=== PATIENT | female | born 1945 | race Caucasian/White ===

== ENCOUNTER 2021-01-05 10:49 | Inpatient (IN) | payer MEDICARE, MEDICAID, SELFPAY ==
[2021-01-05] VITALS (46 sets, daily range): BP systolic 87–124; BP diastolic 49–76; PULSE 60–86; RESP 1–27; TEMP 36.7–36.8; O2SAT 84–97; BMI 29.8
--- NOTE | 2021-01-05 10:58 | XRR_ITS ---
PROCEDURE INFORMATION: Exam: XR Chest Exam date and time: 01/05/2021 10:58 AM Age: 75 years old Clinical indication: Cough and dyspnea; Additional info: Dyspnea/cough TECHNIQUE: Imaging protocol: XR of the chest. Views: 1 view. COMPARISON: No relevant prior studies available. FINDINGS: Lungs: Lungs are clear bilaterally. Pleural spaces: No pleural effusion. No pneumothorax. Heart/Mediastinum: Cardiac silhouette is markedly enlarged. Mediastinal contours are unremarkable. Vasculature: Vascular calcifications in the aorta. Bones/joints: Unremarkable for age. XR/XR chest 1V portable [id number] IMPRESSION: 1. No acute cardiopulmonary process. 2. Incidental/nonacute findings are listed in the report.
--- NOTE | 2021-01-05 10:59 | ECG_ITS ---
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 Measurements Intervals [place] Rate: 62 P: 40 MD: 185 QRS: 3 QRSD: 109 T: -61 QT: 438 QTc: 445 Interpretive Statements SINUS RHYTHM ST DEVIATION AND MODERATE T-WAVE ABNORMALITY, CONSIDER LATERAL ISCHEMIA [-0.1+ mV T WAVE IN I/aVL/V5/V6] ST DEVIATION AND MODERATE T-WAVE ABNORMALITY, CONSIDER INFERIOR ISCHEMIA [-0.1+ mV T WAVE IN II/aVF] No previous ECG available for comparison Electronically Signed On 01-06-2021 9:42:56 CDT by Fritz Troncoso M.D. [id number] f
--- NOTE | 2021-01-05 10:59 | XACV_ITS ---
Ht: 163 cm Wt: 79 kg BSA: 1.91 m2 Gender: Female : 1945 Any Known Allergies: Other Exam Priority: Routine Procedure(s): Procedure Description: Diagnostic procedure Procedure Description: PCI procedure Procedure Description: Left Heart Catheterization Procedure Description: Drug Eluting Coronary Stent Procedure Description: PTCA Procedure Description: Miscellaneous Procedure Description: ACT Diagnostic Cath Status: Emergency Diagnostic Findings * Left Main has no disease. * Circumflex has no disease. * Mid Left Anterior Descending: obstructive 60% stenosis, MIKE: 3 flow. * Mid Right Coronary Artery: subtotal occlusion, MIKE: 3 flow. * Coronary angiography shows right dominance. Interventional Findings * Mid Right Coronary Artery: 98% stenosis treated with a AB TREK 2.50X12 RX BALLOON, and KIMBERLY Rodrigez TOMMIE 4.0X12 DAREK. 0% residual stenosis, MIKE: 3 flow. Conclusions 1. 1-Left main is normal without significant disease2-LAD has patent previously placed proximal stent, there is a mid 60% stenosis not appear to be significant3-LCx has no significant disease noted otherwise4-RCA is subtotally occluded with almost 98% stenosis, it is the culprit or vessel for acute coronary syndrome. 2. There is subtotal occlusion coronary artery disease with two vessel disease. 3. Mid Right Coronary Artery was treated with a Balloon, and Drug Eluting Stent. Recommendations * 1-Return to inpatient for close monitoring and routine cath care 2-Risk factor modification for secondary prevention 3-Statin and aspirin 81 mg life--long, if tolerated 4-Patient was pre-loaded with 600 mg of Plavix, continue Plavix 75mg p.o. daily for at least one year. We will assess at the end of one year again to continue if further or not 5-Continue optimal medical management 6-Follow up with Dr. Anglin in four weeks and your primary care in 10 days. Interventional RX Recommendation: PCI w/o planned CABG Diagnostic RX Recommendation: PCI w/o planned CABG Clinical Evaluation EBL: 5mL-10mL Procedural Details Procedure Consent Obtained. Admit Source: Emergency department. Pre-Procedure Time Out. Identified patient by full name and date of as verbalized by the patient/guarantor. Does the consent match the physician's order: Yes. Accurate & Complete Informed Consent: Yes. Inpatient/Outpatient History & Physical on Chart: N/A. If H&P is completed, is and addenduem needed: N/A; If yes, is the addendum complete: N/A. Visualize and Verify Site with Patient/Guarantor: N/A. Relevant Radiology Images available: N/A. Pre-op teaching completed and patient verbalized understanding. The risks, benefits, and alternatives of sedation and/or procedure were discussed by physician. The patient agrees to continue. Procedure started. Correct patient, site and procedure confirmed by cath team. PERRLA. 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 Lungs clear x 5 lobes. IV Site on Arrival: 20 gauge in the left anticubital. Oxygen started at 2liters/min via nasal canula. bilateral groins was prepped with chloroprep then draped in the usual sterile fashion. right radial was prepped with chloroprep then draped in the usual sterile fashion. Physician notified. Baseline sample Acquired. HR: 67 BPM. Physician arrived. Physician scrubbed in. Immediate Pre-Procedure Time Out. Correct Patient: Yes; Correct Procedure: Yes; Correct Site: Yes; Correct Patient Position: Yes; Correct Supplies: Yes; Dried Flammable Prep: yES; Blood Products Available: N/A;. Lidocaine 1% infiltrated to the right radial. Arterial access obtained. ACT drawn. Results 107 seconds. Therapeutic limits - pre-heparin administration 90-150 seconds and monitoring heparin during a vascular procedure >250 seconds. A 5 peruvian TIG catheter in over wire. Multiple views taken of left coronary artery. Catheter out. 6 peruvian JR 4 guide catheter was inserted over the wire. [place] guidewire was advanced through the guide catheter to lesion in the mid RCA. Inflation number : 1 A AB TREK 2.50X12 RX BALLOON was prepped and advanced across the Mid RCA , then inflated to 12 EDEN for 0:10 seconds. Inflation number: 2 The AB TREK 2.50X12 RX BALLOON was reinflated across the Mid RCA, to 12 EDEN for 0:17 seconds. Balloon out. Inflation Number : 3 A KIMBERLY Rodrigez TOMMIE 4.0X12 DAREK -Lot Number# [id number] exp date: 08-29-2021 was prepped and advanced across the Mid RCA. The stent was deployed at 12 EDEN for 0:17 seconds. Stent balloon out over wire. Results checked. Wire out. ACT drawn. Results 251 seconds. Therapeutic limits - pre-heparin administration 90-150 seconds and monitoring heparin during a vascular procedure >250 seconds. TR band placed. Hemostasis obtained. Post Procedure: Pulses reassessed and unchanged. PERRLA. 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 No VTE prophylaxis required. Medication's Wasted: Lidocaine 1% = 15 mL. Medication's Wasted: Nitro = 49.8 mg. Medication's Wasted: Heparin = 4000 units. Medication's Wasted: Other = veresed 1 mg. Medication's Wasted: Other = fentanyl 50 mg. Total IV fluids: 250 mL. Contrast type used: Omnipaque 300 mgI/mL, 500 mL bottle. Contrast Material : Omnipaque 98 ml. A TR Band was successful obtaining hemostatsis at the Right Radial artery insertion site. [facility] Clinical Fraility Score: 4: Vulnerable. 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 Chest Pain Symptom Assessment: Atypical Angina. Cardiovascular Instability: No. PCI Indication: significant 90% mid RCA stenosis. Post-op diagnosis: Drug illuting stent to mid RCA. Complications: none. Estimated blood loss: 5mL-10mL. Procedure completed. Patient transferred by wheelchair to 1st floor. Vital chart was stopped. Access Site Site: Right Radial artery Sheath Size: 6 Fr Hemostasis Method: TR Band Hemostasis Success: Successful Procedure Medications Start: 1:03 PM Stop: 1:03 PM Medication: Versed Amount: 1 mg Route: I.V. Start: 1:03 PM Stop: 1:03 PM Medication: Fentanyl Amount: 50 mcg Route: I.V. Start: 1:03 PM Stop: 1:03 PM Medication: Nitrogylcerin Amount: 200 mcg Route: I.A. Start: 1:12 PM Stop: 1:12 PM Medication: Heparin Amount: 7000 units Route: I.V. Start: 1:16 PM Stop: 1:16 PM Medication: 0.9% Saline Amount: 250 ml Route: I.V. bolus I, the attending physician, have reviewed and verified all procedure medications. Yes, all medications given per verbal order Report Signatures Finalized by Karen Anglin MD on 01/18/2021 06:46 PM
[2021-01-05 11:23] LABS: Basophils % 0.5 %; Eosinophils % 0.1 %; Hematocrit 43.5 % (37.0-47.0); Hemoglobin 13.8 g/dL (11.5-15.3); Lymphocytes # 1.3 10^3/uL (0.8-4.8); Lymphocytes % 16.1 %; Mean Corpuscular HGB Conc 31.7 g/dL (30.0-36.0); Mean Corpuscular Hemoglobin 27.2 pg (28.0-34.0); Mean Corpuscular Volume 85.6 fL (81-99); Mean Platelet Volume 11.3 fL (7.4-10.4); Monocytes # 0.3 10^3/uL (0.2-0.9); Monocytes % 4.2 %; Neutrophils # 6.13 10^3/uL (1.8-7.7); Neutrophils % 78.8 %; Nucleated Red Blood Cells % 0 %; Platelet Count 214 10^3/cmm (130-400); Red Blood Count 5.08 10^6/uL (4.1-5.3); Red Cell Distribution Width 13.6 % (12.1-15.1); White Blood Count 7.8 10^3/uL (4.0-10.0)
[2021-01-05 11:25] LABS: INR 1.04 (0.8-1.2)
[2021-01-05 11:37] LABS: Alanine Aminotransferase 15 U/L (0-33); Alkaline Phosphatase 85 IU/L (35-105); Anion Gap 15.1 (5-19); Aspartate Amino Transferase 37 U/L (0-32); Blood Urea Nitrogen 10 mg/dL (8-23); Calcium 9.8 mg/dL (8.5-10.5); Carbon Dioxide 26 mmol/L (22-29); Chloride 97 mmol/L (98-107); Globulin 2.9 g/dL (1.3-4.6); Glucose 158 mg/dL (65-115); Osmolality Calculated 280 mOsm/kg (285-295); Potassium 4.1 mmol/L (3.5-5.1); Sodium 134 mmol/L (136-145); Total Bilirubin 0.5 mg/dL (0.15-1.2); Total Protein 6.9 g/dL (6.6-8.7)
--- NOTE | 2021-01-05 11:37 | ED_ITS ---
HPI - Chest Pain General: Chief Complaint: Chest Pain Stated Complaint: STEMI Time Seen by Provider: 01/05/21 10:58 History of Present Illness: HPI narrative: 75-year-old female was transferred to the emergency room from [facility] as a STEMI. They forwarded to EKGs when showed some ST elevation in 3 and [address]VF with some ST depression laterally. On arrival here she has Nitropaste on the chest that she is having minimal chest discomfort. Repeat EKG did not show acute ST elevation. Patient has known history of coronary disease and previously had angiography with stenting. In the first diagonal right coronary artery. She also states she had other lesions that were not culprit and treated. Patient is diabetic. Dr. Robbins is present on arrival as a STEMI alert had been called. Repeat EKG reviewed he does not feel it is a STEMI. MD complaint: chest pain Pertinent past history: coronary artery disease Onset (ago): day(s) Timing of current episode: episodic Prior episodes: Yes Onset: during rest Pain location: left chest Pain radiation: none Severity: mild Quality: tightness and heaviness Relieving factors: nitroglycerin Exacerbating factors: nothing Associated symptoms: Deny abdominal pain, diaphoresis, dyspnea, fever(s), leg edema, nausea, palpitations, sense of impending doom, syncope or vomiting Treatment prior to arrival: aspirin and nitroglycerin Review of Systems Const: Denies: fever(s) or diaphoresis ENMT: Denies: throat pain, ear or mastoid pain, nasal discharge or nasal congestion Card: Denies: palpitations or syncope Resp: Denies: dyspnea GI: Denies: abdominal pain, nausea or vomiting : Denies: flank pain, difficulty voiding, dysuria, urinary frequency or urinary urgency Skin/Breast: Denies: rash or pruritus [facility] ED PFSH: Medical History (Updated 01/19/21 @ 13:13 by Wilton Mcdaniels DO) Abdominal pain Abnormal EKG CAD (coronary artery disease) HTN (hypertension) with goal to be determined Hyperlipemia NSTEMI (non-ST elevated myocardial infarction) Physical Exam Const: COMMON NORMALS: no acute distress GENERAL APPEARANCE: cooperative and comfortable ORIENTATION/CONSCIOUSNESS: Yes awake, Yes oriented to person, Yes oriented to place and Yes oriented to time HENMT: COMMON NORMALS: normocephalic, atraumatic, hearing grossly normal bilaterally and external ears normal HEAD & SCALP: normocephalic and atraumatic EXTERNAL EAR: Yes external ears normal Neck/C-Spine: COMMON NORMALS: no JVD Resp: COMMON NORMALS: normal respiratory effort, No retractions, No use of accessory muscles and clear to auscultation bilaterally AUSCULTATION: clear to auscultation bilaterally Cardio: COMMON NORMALS: no JVD, regular rate, regular rhythm and No murmurs present (Cardio) RATE: regular rate RHYTHM: regular rhythm GI: COMMON NORMALS: Soft to palpation and No hepatosplenomegaly present AUSCULTATION: Yes normoactive bowel sounds PALPATION: Yes Soft to palpation, No Tenderness to palpation present (GI), No Guarding due to palpation present (GI) and Yes No hepatosplenomegaly present Extremity: COMMON NORMALS: normal to inspection, capillary refill normal, no clubbing, cyanosis or edema, no calf tenderness and no pedal edema Neuro: SENSORIUM/ORIENTATION: Yes oriented to person, Yes oriented to place and Yes oriented to time Skin: COMMON NORMALS: no rashes or lesions noted GENERAL SKIN EXAM: no rashes or lesions noted Course Vital Signs: Vital signs: Vital Signs Temperature 97.9 F 01/06/21 15:05 Pulse Rate 84 01/06/21 15:05 Respiratory Rate 23 H 01/06/21 15:05 Blood Pressure 146/60 01/06/21 15:05 Pulse Oximetry 96 01/06/21 15:05 MDM - Chest Pain MDM Narrative: Medical decision making narrative: Cussed Dr. Robbins reviewed EKG prior to and after patient arrived she did not feel that the patient was a STEMI. She began having more trouble and then ultimately showed elevation in troponin continued to have chest pain was taken to the Medical Manager. Was admitted via Dr. Robbins with cardiology consulting. Lab Data: Labs: Lab Results 01/05/21 01/05/21 01/05/21 Range/Units 11:05 11:05 11:05 WBC 7.8 (4.0-10.0) 10^3/ uL RBC 5.08 (4.1-5.3) 10^6/u L Hgb 13.8 (11.5-15.3) g/dL Hct 43.5 (37.0-47.0) % MCV 85.6 (81-99) fL MCH 27.2 L (28.0-34.0) pg MCHC 31.7 (30.0-36.0) g/dL RDW 13.6 (12.1-15.1) % Plt Count 214 (130-400) 10^3/c mm MPV 11.3 H (7.4-10.4) fL Neut % (Auto) 78.8 % Lymph % (Auto) 16.1 % [place] % (Auto) 4.2 % Eos % (Auto) 0.1 % Baso % (Auto) 0.5 % Neut # (Auto) 6.13 (1.8-7.7) 10^3/u L Lymph # (Auto) 1.3 (0.8-4.8) 10^3/u L [place] # (Auto) 0.3 (0.2-0.9) 10^3/u L Eos # (Auto) 0.0 (0.0-0.8) 10^3/u L Baso # (Auto) 0.0 (0.0-0.1) 10^3/u L Nucleated RBC % (a uto) 0 % Nucleated RBCs # 0.0 /100WBC PT 13.90 (12.1-14.9) SECO NDS INR 1.04 (0.8-1.2) APTT 104.7 H (23.9-36.7) SECO NDS Sodium 134 L (136-145) mmol/L Potassium 4.1 (3.5-5.1) mmol/L Chloride 97 L (98-107) mmol/L Carbon Dioxide 26 (22-29) mmol/L Anion Gap 15.1 (5-19) BUN 10 (8-23) mg/dL Creatinine 0.6 (0.5-0.9) mg/dL GFR Calculation Not Reportable Glucose 158 H (65-115) mg/dL Calculated Osmolal ity 280 L (285-295) mOsm/k g Calcium 9.8 (8.5-10.5) mg/dL Total Bilirubin 0.5 (0.15-1.2) mg/dL AST 37 H (0-32) U/L ALT 15 (0-33) U/L Alkaline Phosphata se 85 (35-105) IU/L Troponin T Baselin e (0-10) ng/L Total Protein 6.9 (6.6-8.7) g/dL Albumin 4.0 (3.5-5.2) g/dL Globulin 2.9 (1.3-4.6) g/dL // Range/Units 11:05 WBC (4.0-10.0) 10^3/ uL RBC (4.1-5.3) 10^6/u L Hgb (11.5-15.3) g/dL Hct (37.0-47.0) % MCV (81-99) fL MCH (28.0-34.0) pg MCHC (30.0-36.0) g/dL RDW (12.1-15.1) % Plt Count (130-400) 10^3/c mm MPV (7.4-10.4) fL Neut % (Auto) % Lymph % (Auto) % [place] % (Auto) % Eos % (Auto) % Baso % (Auto) % Neut # (Auto) (1.8-7.7) 10^3/u L Lymph # (Auto) (0.8-4.8) 10^3/u L [place] # (Auto) (0.2-0.9) 10^3/u L Eos # (Auto) (0.0-0.8) 10^3/u L Baso # (Auto) (0.0-0.1) 10^3/u L Nucleated RBC % (a uto) % Nucleated RBCs # /100WBC PT (12.1-14.9) SECO NDS INR (0.8-1.2) APTT (23.9-36.7) SECO NDS Sodium (136-145) mmol/L Potassium (3.5-5.1) mmol/L Chloride (98-107) mmol/L Carbon Dioxide (22-29) mmol/L Anion Gap (5-19) BUN (8-23) mg/dL Creatinine (0.5-0.9) mg/dL GFR Calculation Glucose (65-115) mg/dL Calculated Osmolal ity (285-295) mOsm/k g Calcium (8.5-10.5) mg/dL Total Bilirubin (0.15-1.2) mg/dL AST (0-32) U/L ALT (0-33) U/L Alkaline Phosphata se (35-105) IU/L Troponin T Baselin e 187 H* (0-10) ng/L Total Protein (6.6-8.7) g/dL Albumin (3.5-5.2) g/dL Globulin (1.3-4.6) g/dL Discharge Plan Discharge Patient Disposition: Admitted As Inpatient Admit Provider: Karen Anglin Clinical Impression: Acute myocardial infarction Condition: Stable Discharge Diet: Diabetic Discharge Activity: Resume usual activity Coding Level of Care Code ED Research Computing Specialist for Chg Fwd Exam Comprehensive
[2021-01-05 11:40] LABS: Troponin(5th) Baseline 187 ng/L (0-10)
[2021-01-05 12:02] LABS: Partial Thromboplastin Time 104.7 SECONDS (23.9-36.7)
--- NOTE | 2021-01-05 12:59 | ECG_ITS ---
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 Measurements Intervals [place] Rate: 62 P: 40 [place]: 185 QRS: 3 QRSD: 109 T: -61 QT: 438 QTc: 445 Interpretive Statements SINUS RHYTHM ST DEVIATION AND MODERATE T-WAVE ABNORMALITY, CONSIDER LATERAL ISCHEMIA [-0.1+ mV T WAVE IN I/aVL/V5/V6] ST DEVIATION AND MODERATE T-WAVE ABNORMALITY, CONSIDER INFERIOR ISCHEMIA [-0.1+ mV T WAVE IN II/aVF] No previous ECG available for comparison Electronically Signed On 01-06-2021 9:47:31 CDT by Fritz Troncoso M.D. [id number] f
--- NOTE | 2021-01-05 14:08 | P.HP_ITS ---
Providers/Chief Complaint Admitting Physician: Karen Anglin MD Primary Care Provider: Nikolay Copeland MD Chief Complaint: STEMI History of Present Illness Cori Renee is a 75 year old female with past medical history of hypertension, diabetes coronary artery disease status post stent in the past, came in with chief complaint of epigastric chest pain, 5 out of 10 in severity, pressure-like, radiating to the back, going on for about a month time, she was a transfer from [facility], initial EKG done in the ER there,was suggestive of IVCD,LVH with early repolarization changes, troponin was 0.2, 2nd EKG done mild ST elevation with Q waves in the 3 and aVF, no lateral lead changes, STEMI alert was called patient was loaded with Plavix, and was started on heparin, upon arrival in the ER, patient was evaluated by Dr. Anglin in the ER, at that time patient had stated a lot,On arrival here she had Nitropaste on the chest that she is having minimal chest discomfort. Repeat EKG did not show acute ST elevation. EKG showed sinus rhythm. Labs were ordered in the ER including troponins. First set of troponin was elevated:187, no other significant gross abnormality on CBC and CMP. X-ray chest:normal. After review of labs and EKG cardiology decided to take the patient for cardiac cath. Review of Systems Const: Denies: fever(s), chills, body aches, change in appetite or diaphoresis Card: Denies: palpitations, edema, swelling of feet/ankles, dyspnea on exertion, orthopnea or leg pain with exertion Resp: Denies: dyspnea, productive cough, wheezing or pain on inspiration GI: Denies: diarrhea or constipation : Denies: flank pain Musc: Denies: back pain, extremity pain or extremity swelling Neuro: Denies: headache(s), difficulty walking or confusion Medications/Allergies Allergies Allergy/AdvReac Type Severity Reaction Status Date / Time atorvastatin [From Lipitor] Allergy Unknown Verified 01/05/21 11:07 duloxetine [From Cymbalta] Allergy Unknown Verified 01/05/21 11:07 escitalopram [From Lexapro] Allergy Unknown Verified 01/05/21 11:07 Penicillins Allergy Unknown Verified 01/05/21 11:07 tramadol Allergy Unknown Verified 01/05/21 11:07 PFSH Acute PFSH: Medical History Abdominal pain Abnormal EKG CAD (coronary artery disease) Vitals/I&O/Wt Last Vital Signs Temp 98.1 F 01/05/21 10:54 Pulse 69 01/05/21 12:33 Resp 24 H 01/05/21 12:33 BP 123/76 01/05/21 12:33 Pulse Ox 93 01/05/21 12:33 Weight last 48 hrs Weight 78.925 kg Physical Exam Const: COMMON NORMALS: patient oriented x3 HENMT: COMMON NORMALS: normocephalic and atraumatic HEAD & SCALP: normocephalic and atraumatic Chest: CHEST: Yes Symmetrical chest wall rise Resp: COMMON NORMALS: clear to auscultation bilaterally EFFORT & INSPECTION: Yes symmetric chest movement AUSCULTATION: clear to auscultation bilaterally Cardio: COMMON NORMALS: regular rate, regular rhythm, S1 normal heart sound present, S2 normal heart sound present, No gallops present (Cardio), No murmurs present (Cardio), No rub (Cardio) and Peripheral pulses 2+ throughout RATE: regular rate RHYTHM: regular rhythm HEART SOUNDS: S1 normal heart sound present and S2 normal heart sound present PERIPHERAL PULSES: Peripheral puls es 2+ throughout GI: COMMON NORMALS: Normal to inspection, nondistended, normoactive bowel sounds present, Soft to palpation, non-tender, No hepatosplenomegaly present and no masses AUSCULTATION: Yes normoactive bowel sounds PALPATION: Yes Soft to palpation and Yes No hepatosplenomegaly present RECTAL EXAM: deferred Extremity: COMMON NORMALS: no clubbing, cyanosis or edema and no pedal edema Neuro: COMMON NORMALS: patient oriented x3 Data : 01/05/21 11:05 01/05/21 11:05 A&P Assessment and plan (1) CAD (coronary artery disease): CAD S/P Stent ( RCA : ) 2D Echo Tele Aspirin 81 mg po daily PLavix 75 mg po daily Atorvas 40 mg po daily Lisinopril 5 mg po daily Nitro SL PRN Status: Acute (2) Diabetes: LDSSI FSG Carbohydrate consistent diet Status: Acute (3) Abnormal EKG: Status: Acute (4) Abdominal pain: Patient is complaining of more of epigastric pain, radiating to the back, in all likelihood, possible cardiac in Origin, cannot rule out gastritis. Protonix 40 mg p.o. Status: Acute Additional A&P Information CODE STATUS: Full code DVT PPX:Lovenox Attestations Medical Necessity Statement*: Patient needs to be in hospital for management of chest pain, s/p cardiac cath. Anticipated length of stay greater than 2 midnights. Coding Level of Care Code Acute Machine Tool Operator for [facility] Fwd Diagnoses CAD (coronary artery disease) I25.10 Diabetes E11.9 Abnormal EKG R94.31 Abdominal pain R10.9
--- NOTE | 2021-01-05 16:59 | ECG_ITS ---
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 Measurements Intervals [place] Rate: 65 P: 27 ME: 182 QRS: -23 QRSD: 100 T: -53 QT: 462 QTc: 482 Interpretive Statements SINUS RHYTHM POSSIBLE LEFT ATRIAL ENLARGEMENT [-0.1mV P WAVE IN V1/V2] POSSIBLE LEFT VENTRICULAR HYPERTROPHY [VOLTAGE CRITERIA PLUS LAE OR QRS WIDENING] INFERIOR MYOCARDIAL INFARCTION , OF INDETERMINATE AGE [40+ ms Q WAVE AND/OR ST/T ABNORMALITY IN II/aVF] Compared to ECG 01/05/2021 10:55:32 Myocardial infarct finding now present T-wave abnormality no longer present Possible ischemia no longer present Electronically Signed On 01-06-2021 9:50:20 CDT by Fritz Troncoso M.D. [id number]
[2021-01-05 18:34] LABS: Glucose Point of Care 171 mg/dL (70-110)
[2021-01-05] MEDS: bisacodyl 5 mg Tablet 10 MG PO (18:47)
[2021-01-05] MEDS: ondansetron 2 mg/ML SDV 2 mL 4 MG IVP (18:47)
[2021-01-05] MEDS: sodium chloride 0.9% 1,000 ML 50 ML IV (20:58)
[2021-01-05 21:01] LABS: Glucose Point of Care 256 mg/dL (70-110)
[2021-01-06] VITALS (15 sets, daily range): BP systolic 93–146; BP diastolic 54–60; PULSE 64–84; RESP 15–24; TEMP 36.4–36.8; O2SAT 90–98
[2021-01-06 03:17] LABS: Basophils % 0.4 %; Eosinophils % 0.5 %; Hematocrit 41.6 % (37.0-47.0); Hemoglobin 13.1 g/dL (11.5-15.3); Lymphocytes # 2.2 10^3/uL (0.8-4.8); Lymphocytes % 29.2 %; Mean Corpuscular HGB Conc 31.5 g/dL (30.0-36.0); Mean Corpuscular Volume 85.6 fL (81-99); Mean Platelet Volume 10.9 fL (7.4-10.4); Monocytes # 0.5 10^3/uL (0.2-0.9); Monocytes % 7.2 %; Neutrophils # 4.61 10^3/uL (1.8-7.7); Neutrophils % 62.3 %; Nucleated Red Blood Cells % 0 %; Platelet Count 251 10^3/cmm (130-400); Red Blood Count 4.86 10^6/uL (4.1-5.3); White Blood Count 7.4 10^3/uL (4.0-10.0)
[2021-01-06 03:57] LABS: Alanine Aminotransferase 21 U/L (0-33); Albumin Level 3.7 g/dL (3.5-5.2); Alkaline Phosphatase 77 IU/L (35-105); Aspartate Amino Transferase 110 U/L (0-32); Blood Urea Nitrogen 11 mg/dL (8-23); Calcium 9.1 mg/dL (8.5-10.5); Carbon Dioxide 27 mmol/L (22-29); Chloride 103 mmol/L (98-107); Chol HDL Ratio 4.78 mg/dL (0.0-4.40); Cholesterol 191 mg/dL (0-200); Globulin 2.6 g/dL (1.3-4.6); Glucose 97 mg/dL (65-115); HDL Cholesterol 40 mg/dL (60-100); LDL Cholesterol Calculated 116 mg/dL (50-129); Magnesium 2.1 mg/dL (1.7-2.3); Osmolality Calculated 289 mOsm/kg (285-295); Sodium 140 mmol/L (136-145); Thyroid Stimulating Hormone 1.05 uIU/mL (0.27-4.20); Total Bilirubin 0.4 mg/dL (0.15-1.2); Total Protein 6.3 g/dL (6.6-8.7); Triglycerides 173 mg/dL (0-150)
[2021-01-06 04:34] LABS: Estmated Average Glucose 148; Hemoglobin A1C 6.8 % (4.0-6.0)
[2021-01-06 06:47] LABS: Glucose Point of Care 110 mg/dL (70-110)
[2021-01-06] MEDS: aspirin 81 mg Chew Tablet PO (08:37)
[2021-01-06] MEDS: pantoprazole DR 40 mg Tablet PO (08:37)
[2021-01-06] MEDS: clopidogrel 75 mg Tablet PO (08:37)
[2021-01-06] MEDS: lisinopril 5 mg Tablet PO (10:26)
[2021-01-06 11:21] LABS: Glucose Point of Care 122 mg/dL (70-110)
--- NOTE | 2021-01-06 12:41 | PC.CHAP ---
Pastoral Care Encounter/Spiritual Assessment Type of Contact [] Declined rim roller operator visit [] Patient/Family/Request visit [] Outpatient visit [] Follow-up visit [] Physician referral [] Code/Alert [XX] Routine visit [] Staff referral [] Actively dying [] Patient sleeping [] Family support [] [] Out of room [] Palliative care [] [XX] Receiving care in room [] Pre-surgical visit [] Trauma [] Long length of stay [] ICU visit [XX] Other: visiting with others, too Relational/Emotional Strength [] Patient feels connected with others/family/visitors/staff [] Distress [] Loneliness/isolation [] Abandonment Spirituality of Patient [] Person of Shyla [] Attends Cheondoism of their Shyla [] Believes in Prayer [] Reads Bible or Taoist materials [] There are Spiritual issues to be addressed Dermatopathologist Interventions [] Prayer [] Active listening [] Non-anxious presence [] Spiritual/emotional support [] Crisis/trauma care [] Spiritual counseling [] Bereavement support [] Provided bereavement packet [] Provided Bible/devotional materials [] Provided toy/stuffed animal, coloring book to patient or family member [] Provided Communion [] Anointing/[place] [] Salvation [] Completed spiritual assessment [] Other: Impact on Illness or Injury [] Angry [] Fearful [] Anxious [] Often cries [] Exhaustion [] Unable to work [] Unable to attend hindu [] Unable to walk/stand [] Unable to read [] Unable to drive [] Unable to eat/drink [] Unable to sleep [] Unable to be with family [] Patient intubated [] Other: Summary Time spent with patient
--- NOTE | 2021-01-06 15:39 | PC.NURSE ---
Pt education provided regarding medications and post angiogram home care instructions. Pt has no questions or concerns. Pt VS stable upon departure.
--- NOTE | 2021-01-06 16:57 | USCV_ITS ---
Cori Renee Age: 75 Gender: F : 1945 Exam Date: 01/06/2021 08:50 Ordering Phys: Rene Tavarez MD Technologist: Rosa Adams Exam Location: [facility] [place] Ind[place]: Chest pain BP: 107 / 56 HR: 81 Rhythm: Sinus Technical Quality: Fair MEASUREMENTS (Male / Female) Normal Values 2D ECHO LV Diastolic Diameter PLAX 5.7 cm 4.2 - 5.9 / 3.9 - 5.3 cm LV Systolic Diameter PLAX 3.8 cm LV Chamber Size 4.4 cm IVS Diastolic Thickness 1.3 cm 0.6 - 1.0 / 0.6 - 0.9 cm IVS Systolic Thickness 2.1 cm LVPW Diastolic Thickness 1.1 cm 0.6 - 1.0 / 0.6 - 0.9 cm LVPW Systolic Thickness 1.1 cm RV Chamber Size 3.5 cm LVOT Diameter 1.9 cm LV Ejection Fraction 2D Teich 61.0 % LV Ejection Fraction MOD 2C 46.9 % LV Ejection Fraction 2C AL 47.4 % LA Diameter 3.8 cm LA Width 3.6 cm LA Height 4.8 cm RA Width 3.1 cm RA Height 4.4 cm Aorta at Sinotubular Diameter 2.5 cm M-MODE LV Diastolic Diameter MM 6.6 cm 4.2 - 5.9 / 3.9 - 5.3 cm LV Systolic Diameter MM 4.8 cm LV Ejection Fraction MM Teich 51.2 % IVS Diastolic Thickness MM 0.9 cm 0.6 - 1.0 / 0.6 - 0.9 cm IVS Systolic Thickness MM 1.2 cm LVPW Diastolic Thickness MM 1.3 cm 0.6 - 1.0 / 0.6 - 0.9 cm LVPW Systolic Thickness MM 1.6 cm RV Diastolic Diameter MM 0.6 cm Aortic Annulus Diameter 2.7 cm LA Ao Ratio MM 1.5 MV E Point Septal Separation 1.2 cm DOPPLER AV Peak Velocity 121.0 cm/s LVOT Peak Velocity 103.0 cm/s AV Area Cont Eq vti 2.7 cm squared AV Area Cont Eq pk 2.5 cm squared MV Area PHT 5.0 cm squared Mitral E to A Ratio 0.9 MV E' Velocity 52.0 cm/s Mitral E to MV E' Ratio 12.2 Mitral E to LV E' Lateral Ratio 10.2 Mitral E to LV E' Septal Ratio 15.4 TR Peak Velocity 244.3 cm/s TR Peak Gradient 23.9 mmHg TR Mean Velocity 169.1 cm/s TR Mean Gradient 12.9 mmHg TR Velocity Time Integral 60.6 cm TV Peak E Velocity 40.0 cm/s Right Atrial Pressure 3.0 mmHg Pulmonary Artery Systolic Pressu 26.9 mmHg PV Peak Velocity 85.0 cm/s RV Acceleration Time 0.1 s RV Ejection Time 0.3 s RV AcT/ET 0.2 FINDINGS Left Ventricle Moderately increased left ventricular cavity size. Severely decreased left ventricular systolic function. Left ventricular ejection fraction is estimated at 35 %. There appeared to be mid to distal and apical akinesis. Mid to distal septum and apex appear to be thinned which could be secondary to old myocardial infarction. Mild lateral wall hypokinesis.Grade I/IV diastolic dysfunction (abnormal relaxation filling pattern), normal to mildly elevated filling pressures. Right Ventricle The right ventricle is normal in size and function. Right Atrium The right atrium is normal in size. Left Atrium The left atrium is normal in size. Mitral Valve Moderately thickened mitral valve. No mitral valve stenosis. Moderate mitral valve regurgitation. Aortic Valve Moderate aortic valve calcification. No aortic valve stenosis. Trace aortic valve regurgitation. Tricuspid Valve Structurally normal tricuspid valve without significant stenosis or regurgitation. Pulmonary artery systolic pressure is normal. Pulmonic Valve Structurally normal pulmonic valve without significant stenosis. There is no pulmonic regurgitation. Pericardium Normal pericardium without effusion. Aorta Normal ascending aorta dimension. CONCLUSIONS 1-Moderately increased left ventricular cavity size. Severely decreased left ventricular systolic function. Left ventricular ejection fraction is estimated at 35 %. There appeared to be mid to distal septal and apical akinesis. Mid to distal septum and apex appear to be thinned which could be secondary to old myocardial infarction. Mild lateral wall hypokinesis.Grade I/IV diastolic dysfunction (abnormal relaxation filling pattern), normal to mildly elevated filling pressures. 2-Moderately thickened mitral valve. No mitral valve stenosis. Moderate mitral valve regurgitation. 3-Moderate aortic valve calcification. No aortic valve stenosis. Trace aortic valve regurgitation. 4-There is no pericardial effusion. 5-Pulmonary artery systolic pressure is within normal limits. 6-Right atrial pressure is around 5 mm of mercury. 7-There are no prior echocardiogram studies to compare. Karen Anglin MD (Electronically Signed) Final Date: 06 January 2021 15:21 S
== END 2021-01-06 15:43 | disposition home or self-care (01) | DRG 247 ==
LOC: ER 11:30 → CCL 11:47 → CSU 13:54
PROVIDERS: Internal Medicine; Admitting Provider Internal Medicine Cardiovascular Disease; Emergency Provider Family Medicine; Family Provider Family Medicine; PCP Family Medicine; Visit Provider Internal Medicine Cardiovascular Disease
PROC: 027034Z Dilation of Coronary Artery, One Artery with Drug-eluting Intraluminal Device, Percutaneous Approach (ICD-10-PCS; principal; 2021-01-05 12:00)
PROC: 027034Z Dilation of Coronary Artery, One Artery with Drug-eluting Intraluminal Device, Percutaneous Approach (ICD-10-PCS; 2021-01-05 12:00)
DX: I25.119 Atherosclerotic heart disease of native coronary artery with unspecified angina pectoris (principal); Z95.5 Presence of coronary angioplasty implant and graft; I10 Essential (primary) hypertension; E11.9 Type 2 diabetes mellitus without complications; K29.70 Gastritis, unspecified, without bleeding; R94.31 Abnormal electrocardiogram [ECG] [EKG]
CPT/HCPCS: 36416; 71045; 80053; 80061; 82962; 83036; 83735; 84443; 84484; 85025; 85347; 85610; 85730; 93005; 93306; 93454; 99285; C1725; C1769; C1874; C1887; C1894; C9600; J1644; J1815; J2250; J2405; J3010; J3490; J7030; Q9967

== ENCOUNTER → 2021-01-17 12:05 | Outpatient (BNVA) | payer MEDICARE, MEDICAID, SELFPAY | PROVIDERS: Visit Provider Nurse Practitioner Family | DX: I10 Essential (primary) hypertension (principal); I25.10 Atherosclerotic heart disease of native coronary artery without angina pectoris; I50.20 Unspecified systolic (congestive) heart failure | CPT/HCPCS: 80048 ==